=== PATIENT | male | born 1985 | race Caucasian/White ===

== ENCOUNTER 2018-06-09 17:26 | Emergency (ER) | payer SELFPAY ==
[2018-06-09] MEDS ORDERED: DIAZEPAM 10 MG/2 ML INJ SYRINGE ONE (18:40)
[2018-06-09] MEDS ORDERED: MORPHINE 4 MG/ML SYR ONE (18:41)
[2018-06-09] MEDS ORDERED: DEXAMETHASONE 10 MG/ML VIAL ONE (18:41)
[2018-06-09] MEDS ORDERED: ONDANSETRON 4 MG/2 ML VIAL ONE (18:42)
[2018-06-09 19:07] LABS: Absolute Lymphocytes (CBC) 1.4 K/uL (0.7-4.9); Absolute Monocytes 0.6 K/uL (0.1-1.3); Absolute Neutrophil 6.1 K/uL (1.8-8.0); Basophils % 0.3 % (0-1.3); Hematocrit 44.5 % (39.6-49.0); MCH 30.6 pg (27.0-35.0); MCV 89.9 fL (80-100); MPV 9.5 fL (7.6-11.3); Monocytes % 7.8 % (3.3-12.3); RBC Red Blood Cell Count 4.94 M/uL (4.33-5.43)
[2018-06-09 19:21] LABS: ALT/SGPT 43 U/L (12-78); AST/SGOT 61 U/L (15-37); Albumin 3.9 g/dL (3.4-5.0); Alkaline Phosphatase 84 U/L (45-117); BUN Blood Urea Nitrogen 11 mg/dL (7-18); Bicarbonate 29 mmol/L (21-32); Bilirubin Total 0.4 mg/dL (0.2-1.0); Glucose Level 95 mg/dL (74-106); Protein, Total 7.5 g/dL (6.4-8.2); Sodium Level 142 mmol/L (136-145); Troponin (Emerg Dept Use Only) < 0.02 ng/mL (0.0-0.045)
--- NOTE | 2018-06-09 19:22 | RAD REPORT ---
EXAM DESCRIPTION: CT - C Spine Wo Con - 06/09/2018 6:59 pm CLINICAL HISTORY: neck pain, paresthesias Neck pain, radiculopathy COMPARISON: <Comparisons> FINDINGS: The cervical vertebral body heights and disc spaces are maintained. No evidence of acute cervical spine fracture or subluxation. Prevertebral soft tissues are normal in thickness. No severe central canal stenosis is identified. IMPRESSION: Negative for acute cervical spine abnormality. No severe central canal stenosis is suspe cted. Follow-up nonemergent MR imaging would be suggested further assessment is clinically needed. All CT scans are performed using dose optimization technique as appropriate and may include automated exposure control or mA/KV adjustment according to patient size.
--- NOTE | 2018-06-09 19:26 | RAD REPORT ---
EXAM DESCRIPTION: CT - Spine Lumbar Wo Con - 06/09/2018 7:06 pm CLINICAL HISTORY: Radiculopathy. leg weakness COMPARISON: <Comparisons> TECHNIQUE: Axial noncontrast CT imaging of the lumbar spine was performed with coronal and sagittal re-formatted images. All CT scans are performed using dose optimization technique as appropriate and may include automated exposure control or mA/KV adjustment according to patient size. FINDINGS: No acute lumbar spine fracture seen. No aggressive marrow pattern or malalignment. Paraspinal tissues are normal in thickness. No paraspinal abscess or hematoma seen. Intervertebral disc disease assessment is inherently limited by CT. Mild to moderate posterior disc b ulges are present at multiple levels of the lower lumbar spine. IMPRESSION: No acute lumbar spine finding. Mild to moderate spondylosis is suspected lower lumbar sp ine in the form posterior disc bulges. Severe central canal stenosis is not suspected. Consider MRI follow-up for assessment of disc disease if clinically desired.
[2018-06-09] MEDS ORDERED: HYDROMORPHONE HCL 0.5 MG/0.5 ML INJ ONE ×2 (19:28→23:17)
[2018-06-09] MEDS ORDERED: HYDROMORPHONE HCL 1 MG/ML INJ ONE (20:42)
--- NOTE | 2018-06-09 21:57 | ER ---
Nurse's Notes [facility] Name: Ryan Morillo Age: 32 yrs Sex: Male : 1985 Arrival Date: 06/09/2018 Time: 17:30 Bed 16 Private MD: None, None Diagnosis: Sciatica;Muscle weakness (generalized) Presentation: 06/09 17:31 Presenting complaint: Patient states: i have history of back problems, Sunday i hj started feeling numbed to both my legs and my arms, i could hardly put my socks on; today with my anxiety i started having chest pain; denies SOB;. Transition of care: patient was not received from another setting of care. Onset of symptoms was June 09, 2018. Risk Assessment: Do you want to hurt yourself or someone else? Patient reports no desire to harm self or others. Initial Sepsis Screen: Does the patient meet any 2 criteria? No. Patient's initial sepsis screen is negative. Does the patient have a suspected source of infection? No. Patient's initial sepsis screen is negative. Care prior to arrival: None. 17:31 Method Of Arrival: Ambulatory 17:31 Acuity: ASHISH 3 hj Triage Assessment: 17:36 General: Appears in no apparent distress. uncomfortable, Behavior is calm, cooperative, hj appropriate for age. Pain: Complains of pain in chest. Cardiovascular: Capillary refill < 3 seconds Patient's skin is warm and dry. Historical: - Allergies: 17:36 No Known Allergies; hj - Home Meds: 17:36 Xanax Oral [Active]; hj - PMHx: 17:36 Anxiety; Back pain; hj - PSHx: 17:36 None; hj - Immunization history:: Adult Immunizations up to date. - Social history:: Smoking status: Patient uses tobacco products, Patient uses alcohol. - Ebola Screening: : Patient negative for fever greater than or equal to 101.5 degrees Fahrenheit, and additional compatible Ebola Virus Disease symptoms Patient denies exposure to infectious person Patient denies travel to an Ebola-affected area in the 21 days before illness onset. Screenin:36 Abuse screen: Denies threats or abuse. Denies injuries from another. Nutritional hj screening: No deficits noted. Tuberculosis screening: No symptoms or risk factors identified. Fall Risk None identified. Assessment: 17:37 Pain: Pain does not radiate. Pain began 1 day ago. hj 17:56 General: Appears uncomfortable, Behavior is cooperative, anxious. Neuro: Level of la1 Consciousness is awake, alert, obeys commands, Oriented to person, place, time, situation, Yard Jacker are weak on right Moves all extremities. Weakness in bilateral foot/feet Speech is normal, Facial symmetry appears normal, Pupils are PERRLA, paresthesias in right leg and left leg. Cardiovascular: Capillary refill is > 3 seconds Patient's skin is warm and dry. Respiratory: Airway is compromised Respiratory effort is even, unlabored, Respiratory pattern is regular, symmetrical, Breath sounds are clear bilaterally. GI: No signs and/or symptoms were reported involving the gastrointestinal system. GI: No signs and/or symptoms were reported involving the gastrointestinal system. : No signs and/or symptoms were reported regarding the genitourinary system. 18:53 Reassessment: Patient appears in no apparent distress at this time. No changes from la1 previously documented assessment. Patient and/or family updated on plan of care and expected duration. Pain level reassessed. 19:15 Reassessment: Patient appears in no apparent distress at this time. Patient and/or cc3 family updated on plan of care and expected duration. Pain level reassessed. Patient is alert, oriented x 3, equal unlabored respirations, skin warm/dry/pink. Received this male patient from morning shift ONEAL Amaro as a case of back pain and arm and leg numbness since Sunday; patient just came back from CT scan department. With IV cannula gauge 20 at the left ACV saline locked; NRS 10/10 informed KATLIN Gonzalez. 20:45 Reassessment: Patient appears in no apparent distress at this time. Patient and/or cc3 family updated on plan of care and expected duration. Pain level reassessed. Patient is alert, oriented x 3, equal unlabored respirations, skin warm/dry/pink. 21:30 Reassessment: Patient appears in no apparent distress at this time. Patient and/or cc3 family updated on plan of care and expected duration. Pain level reassessed. Patient is alert, oriented x 3, equal unlabored respirations, skin warm/dry/pink. 22:00 Reassessment: KATLIN Gonzalez informed the patient the need for transfer to [facility]. cc3 22:20 Reassessment: Patient appears in no apparent distress at this time. Patient and/or cc3 family updated on plan of care and expected duration. Pain level reassessed. Patient is alert, oriented x 3, equal unlabored respirations, skin warm/dry/pink. Called [facility] and report handed over to ONEAL Malagon. EMS transfer on process. 23:30 Reassessment: Patient appears in no apparent distress at this time. Patient and/or cc3 family updated on plan of care and expected duration. Pain level reassessed. Patient is alert, oriented x 3, equal unlabored respirations, skin warm/dry/pink. [facility] staff came to fetch the patient. Patient left ER vitally stable by ground EMS stretcher for transfer to [facility]. Vital Signs: 17:37 BP 142 / 100; Pulse 88; Resp 18; Temp 98.8(O); Pulse Ox 100% on R/A; Weight 131.54 kg; Height 5 ft. 11 in. (180.34 cm); Pain 7/10; 18:02 BP 138 / 84; Pulse 74; Resp 16; Pulse Ox 97% on R/A; la1 19:15 BP 148 / 71; Pulse 64; Resp 20 S; Pulse Ox 98% on R/A; Pain 10/10; cc3 20:40 BP 144 / 83; Pulse 67; Resp 19 S; Pulse Ox 98% on R/A; cc3 21:08 BP 116 / 78; Pulse 65; Resp 20 S; Pulse Ox 98% on R/A; cc3 22:20 BP 135 / 90; Pulse 85; Resp 18 S; Pulse Ox 98% on R/A; cc3 23:05 BP 131 / 87; Pulse 84; Resp 19 S; Pulse Ox 98% on R/A; cc3 17:37 Body Mass Index 40.45 (131.54 kg, 180.34 cm) ED Course: 17:30 Patient arrived in ED. mr 17:30 None, None is Private Physician. mr 17:35 Triage completed. 17:36 Arm band placed on right wrist. 17:36 Patient has correct armband on for positive identification. Bed in low position. Call light in reach. Side rails up X 1. Adult w/ patient. 17:37 media monitor on. Pulse ox on. NIBP on. hj 17:37 Patient maintains SpO2 saturation greater than 95% on room air. hj 17:47 Prem Bower, RN is Primary Nurse. la1 17:57 Wesly Gonzalez PA is PHCP. [facility] 17:57 Bassam Tierney MD is Attending Physician. [facility] 18:03 EKG done, by ED staff, reviewed by Wesly DALAL. 5 18:[address] cw1 18:48 Initial lab(s) drawn, by ga, sent to lab. Inserted saline lock: 20 gauge in left [facility] antecubital area, using aseptic technique. Blood collected. 18:48 Troponin (emerg Dept Use Only) Sent. [facility] 18:49 CMP Sent. [facility] 18:49 CBC with Diff Sent. 5 18:59 CT C Spine In Process Unspecified. EDMS 19:05 CT Lumbar Spine Wo Con In Process Unspecified. EDMS 19:06 CT completed. Patient moved back from CT. cw1 23:30 No provider procedures requiring assistance completed. Patient transferred, IV remains cc3 in place. Administered Medications: 18:52 Drug: Valium 2 mg Route: IVP; Site: left antecubital; la1 19:15 Follow up: Response: No adverse reaction cc3 18:52 Drug: morphine 4 mg Route: IVP; Site: left antecubital; la1 19:15 Follow up: Response: No adverse reaction; Pain is increased cc3 18:52 Drug: Zofran 4 mg Route: IVP; Site: left antecubital; la1 19:15 Follow up: Response: No adverse reaction; Nausea is decreased cc3 18:53 Drug: Decadron - Dexamethasone 10 mg Route: IVP; Site: left antecubital; la1 19:15 Follow up: Response: No adverse reaction cc3 19:25 Drug: Dilaudid 0.5 mg Route: IVP; Site: left antecubital; cc3 20:30 Follow up: Response: No adverse reaction; Pain is unchanged, physician notified cc3 20:35 Drug: Dilaudid 1 mg Route: IVP; Site: left antecubital; cc3 21:30 Follow up: Response: No adverse reaction; Pain is decreased cc3 23:09 CANCELLED (Physician Discretion): Dilaudid 0.5 mg IVP once cc3 23:10 Drug: Dilaudid 0.5 mg Route: IVP; Site: left antecubital; cc3 23:30 Follow up: Response: No adverse reaction; Pain is decreased cc3 Outcome: 21:56 ER care complete, transfer ordered by MD. booth 23:30 Transferred by ground EMS to [facility], Transfer form completed. cc3 23:30 Condition: stable 23:30 Instructed on the need for transfer. 23:45 Patient left the ED. cc3 Signatures: Dispatcher [employer] EDMS Wesly Gonzalez PA PA jmm Alfonso, Jammie Peter, Luiza cw1 Prem Bower, RN RN Darnell Clements, ONEAL RN Ibeth Goodrich [facility] Merly Blanca cc3 Corrections: (The following items were deleted from the chart) 06/10 00:26 10 23:30 Reassessment: Patient appears in no apparent distress at this time. Patient cc3 and/or family updated on plan of care and expected duration. Pain level reassessed. Patient is alert, oriented x 3, equal unlabored respirations, skin warm/dry/pink. EMS staff came to fetch the patient. Patient left ER vitally stable by ground EMS stretcher for transfer to [facility]. cc3
--- NOTE | 2018-06-09 21:57 | EDPHYS ---
Physician Documentation [facility] Name: Ryan Morillo Age: 32 yrs Sex: Male : 1985 Arrival Date: 06/09/2018 Time: 17:30 Bed 16 Private MD: None, None ED Physician Bassam Tierney HPI: 06/09 18:27 This 32 yrs old Male presents to ER via Ambulatory with complaints of Chest jmm Pain, Numbness Of Arm. 18:27 The patient presents with pain that is acute, with no known mechanism of injury. The jmm symptoms are located in the low back. Onset: The symptoms/episode began/occurred gradually, 5 day(s) ago. Associated signs and symptoms: Pertinent positives: weakness, Pertinent negatives: dysuria, fever, incontinence, urinary retention. This is a 32 year old male with a history of chronic back pain that presents to the ED with weakness to both of his legs beginning approx 5 days. Patient states having chronic back pain with sciatica to both legs. Denies injury, denies fever, denies bowel incontinence, denies urinary retention. . 18:27 Patient also complains of neck pain with tingling to both hands. Patient also complains jmm of chest pain. . Historical: - Allergies: 17:36 No Known Allergies; hj - Home Meds: 17:36 Xanax Oral [Active]; hj - PMHx: 17:36 Anxiety; Back pain; hj - PSHx: 17:36 None; hj - Immunization history:: Adult Immunizations up to date. - Social history:: Smoking status: Patient uses tobacco products, Patient uses alcohol. - Ebola Screening: : Patient negative for fever greater than or equal to 101.5 degrees Fahrenheit, and additional compatible Ebola Virus Disease symptoms Patient denies exposure to infectious person Patient denies travel to an Ebola-affected area in the 21 days before illness onset. ROS: 18:27 Constitutional: Negative for fever, chills, and weight loss, Cardiovascular: Negative jmm for chest pain, palpitations, and edema, Respiratory: Negative for shortness of breath, cough, wheezing, and pleuritic chest pain, Abdomen/GI: Negative for abdominal pain, nausea, vomiting, diarrhea, and constipation. 18:27 Neck: Positive for pain with movement. 18:27 Back: Positive for pain with movement. 18:27 MS/extremity: Positive for weakness. 18:27 Neuro: Positive for weakness. 18:27 All other systems are negative. Exam: 20:05 Head/Face: atraumatic. Eyes: EOMI, no conjunctival erythema appreciated ENT: Moist [facility] Mucus Membranes 20:05 Chest/axilla: Normal chest wall appearance and motion. Cardiovascular: Regular rate and rhythm. No edema appreciated Respiratory: Normal respirations, no respiratory distress appreciated Abdomen/GI: Non distended, soft 20:05 Constitutional: The patient appears alert, awake, anxious. 20:05 Neck: C-spine: appears grossly normal, no vertebral tenderness, no crepitus, ROM/movement: is normal, is supple. 20:05 Abdomen/GI: Inspection: obese 20:05 Musculoskeletal/extremity: 20:05 Neuro: Orientation: is normal, Mentation: is normal, Memory: is normal, extensor hallucis longus intact. 20:05 Psych: Behavior/mood is pleasant, cooperative, anxious. 20:05 Neuro: Diminished patellar reflexes bilaterally. [facility] Vital Signs: 17:37 BP 142 / 100; Pulse 88; Resp 18; Temp 98.8(O); Pulse Ox 100% on R/A; Weight 131.54 kg; hj Height 5 ft. 11 in. (180.34 cm); Pain 7/10; 18:02 BP 138 / 84; Pulse 74; Resp 16; Pulse Ox 97% on R/A; la1 19:15 BP 148 / 71; Pulse 64; Resp 20 S; Pulse Ox 98% on R/A; Pain 10/10; cc3 20:40 BP 144 / 83; Pulse 67; Resp 19 S; Pulse Ox 98% on R/A; cc3 21:08 BP 116 / 78; Pulse 65; Resp 20 S; Pulse Ox 98% on R/A; cc3 22:20 BP 135 / 90; Pulse 85; Resp 18 S; Pulse Ox 98% on R/A; cc3 23:05 BP 131 / 87; Pulse 84; Resp 19 S; Pulse Ox 98% on R/A; cc3 17:37 Body Mass Index 40.45 (131.54 kg, 180.34 cm) MDM: 18:27 Patient medically screened. [facility] 21:52 Data reviewed: vital signs, nurses notes. Counseling: I had a detailed discussion with jmm the patient and/or guardian regarding: the historical points, exam findings, and any diagnostic results supporting the discharge/admit diagnosis, the need for outpatient follow up, to return to the emergency department if symptoms worsen or persist or if there are any questions or concerns that arise at home. ED course: I discussed the patient with Dr. Cortez whom accepted transfer. I discussed the patient with Dr. Saenz whom accepted the patient. . 06/09 18:29 Order name: CBC with Diff; Complete Time: 19:26 jmm 06/09 18:29 Order name: CMP; Complete Time: 19:26 jmm 06/09 18:29 Order name: Troponin (emerg Dept Use Only); Complete Time: 19:26 jmm 06/09 18:29 Order name: CT C Spine; Complete Time: 19:26 jmm 06/09 18:29 Order name: CT Lumbar Spine Wo Con; Complete Time: 19:26 jmm 06/09 18:04 Order name: EKG - Nurse/Tech; Complete Time: 18:04 mh5 06/09 18:29 Order name: Saline Lock; Complete Time: 18:48 jmm Administered Medications: 18:52 Drug: Valium 2 mg Route: IVP; Site: left antecubital; la1 19:15 Follow up: Response: No adverse reaction cc3 18:52 Drug: morphine 4 mg Route: IVP; Site: left antecubital; la1 19:15 Follow up: Response: No adverse reaction; Pain is increased cc3 18:52 Drug: Zofran 4 mg Route: IVP; Site: left antecubital; la1 19:15 Follow up: Response: No adverse reaction; Nausea is decreased cc3 18:53 Drug: Decadron - Dexamethasone 10 mg Route: IVP; Site: left antecubital; la1 19:15 Follow up: Response: No adverse reaction cc3 19:25 Drug: Dilaudid 0.5 mg Route: IVP; Site: left antecubital; cc3 20:30 Follow up: Response: No adverse reaction; Pain is unchanged, physician notified cc3 20:35 Drug: Dilaudid 1 mg Route: IVP; Site: left antecubital; cc3 21:30 Follow up: Response: No adverse reaction; Pain is decreased cc3 23:09 CANCELLED (Physician Discretion): Dilaudid 0.5 mg IVP once cc3 23:10 Drug: Dilaudid 0.5 mg Route: IVP; Site: left antecubital; cc3 23:30 Follow up: Response: No adverse reaction; Pain is decreased cc3 Disposition: 06/10 09:53 Co-signature as Attending Physician, Bassam Tierney MD. ma2 Disposition: 06/09/18 21:56 Transfer ordered to [facility]. Diagnosis are Sciatica, Muscle weakness (generalized). - Reason for transfer: Higher level of care. - Accepting physician is Letty. - Condition is Stable. - Problem is new. - Symptoms are unchanged. Signatures: Dispatcher [employer] EDMS Wesly Gonzalez PA PA jmm Attema, Lee RN RN la1 Darnell Rojo RN Ibeth Sullivan [facility] Bassam Tierney MD MD ma2 Merly Blanca cc3 Corrections: (The following items were deleted from the chart) 06/09 23:09 23:07 Dilaudid 0.5 mg IVP once ordered. cc3 cc3 23:09 23:08 Dilaudid 0.5 mg IVP once ordered. cc3 cc3 23:45 21:56 06/09/2018 21:56 Transfer ordered to [facility]. Diagnosis is cc3 Sciatica; Muscle weakness (generalized). Reason for transfer: Higher level of care. Accepting physician is Letty. Condition is Stable. Problem is new. Symptoms are unchanged. [facility]
--- NOTE | 2018-06-10 10:04 | EKG ---
Test Date: 2018-06-09 Test Time: 17:55:46 [employer] Programmer: BRANT MEASUREMENT RESULTS: Intervals: Rate: 66 SD: 154 QRSD: 86 QT: 370 QTc: 387 Stuart: P: 7 SD: 154 QRS: -3 T: 21 INTERPRETIVE STATEMENTS: Normal sinus rhythm Moderate voltage criteria for LVH, may be normal variant Borderline ECG No previous ECG available for comparison Electronically Signed On 06-10-18 10:03:43 CDT by Colby Lema
== END 2018-06-09 23:45 | disposition short-term general hospital (02) ==
LOC: ER 17:26 → EDSEX 17:26 → ER 23:45
DX: M54.30 Sciatica, unspecified side (principal); M62.81 Muscle weakness (generalized); F41.9 Anxiety disorder, unspecified; Z72.0 Tobacco use
CPT/HCPCS: 36415; 72125; 72131; 80053; 84484; 85025; 93005; 96374; 96375; 99285; J1100; J1170; J2405; J3360